=== PATIENT | male | born 1985 | race Caucasian/White ===

== ENCOUNTER 2018-03-13 19:34 | Emergency (ER) | payer OTHER ==
[~2018-03-13] VITALS: Ht 182.9 cm; Wt 124.7 kg
[~2018-03-13 19:34] MED LIST: ADDERALL 20 MG20 MG PO; KEFLEX500 MG PO; MOBIC15 MG PO; NORCO 5-325 TA1 EACH PO; OXYCODONE HCL10 MG PO; PERCOCET 5-3251 EACH PO; VALIUM5 MG PO; XANAX XR1 MG PO
[2018-03-13] MEDS ORDERED: ZOLOFT50 MG PO (19:40)
[2018-03-13] MEDS ORDERED: FLEXERIL PO (20:25)
[2018-03-13] MEDS ORDERED: IBUPROFEN 400400 M2 PO (20:25)
[2018-03-13 20:41] VITALS: BP 152/74
== END 2018-03-13 21:11 | disposition home or self-care (01) ==
LOC: ER 19:34
DX: S29.011A Strain of muscle and tendon of front wall of thorax, initial encounter (principal); F41.9 Anxiety disorder, unspecified; X58.XXXA Exposure to other specified factors, initial encounter; Y93.89 Activity, other specified; Y92.89 Other specified places as the place of occurrence of the external cause; Y99.8 Other external cause status